=== PATIENT | female | born 1945 | race Caucasian/White ===

== ENCOUNTER 2019-08-17 11:18 | Inpatient (IN) | payer MEDICARE, BC ==
[~2019-08-17] VITALS: Ht 157.5 cm; Wt 54.0 kg
[2019-08-17 13:48] VITALS: BP 110/58
[2019-08-17] MEDS ORDERED: METF-495 PO (14:27)
[2019-08-17] MEDS ORDERED: ZOLP5TAB8 PO (14:27)
[2019-08-17] MEDS ORDERED: EZET10TA15 PO (14:27)
[2019-08-17] MEDS ORDERED: GABA-532 PO (14:27)
[2019-08-17] MEDS ORDERED: NITR0.4T48 SL (14:27)
[2019-08-17] MEDS ORDERED: DESV50TA PO (14:27)
[2019-08-17] MEDS ORDERED: METO25TA6 PO (14:27)
[2019-08-17] MEDS ORDERED: CHOL10002 PO (14:27)
[2019-08-17] MEDS ORDERED: HYDR-4384 PO (14:27)
[2019-08-17] MEDS ORDERED: MULT-1160 PO (14:27)
[2019-08-17] MEDS ORDERED: CALC-20 PO (14:27)
[2019-08-17] MEDS ORDERED: ATOR40TA PO (14:27)
[2019-08-17] MEDS ORDERED: ASPI81TA31 PO (14:27)
[2019-08-17] MEDS ORDERED: INSU100V39 SQ (14:27)
[2019-08-17] MEDS ORDERED: INSULIN REGULAR, HUMAN 300 UNITS/3 ML VIAL SQ PRN (14:30)
[2019-08-17] MEDS ORDERED: DEXTROSE 50% 50 ML DISP.SYRIN IV PRN ×2 (14:30→15:30)
[2019-08-17] MEDS ORDERED: INSULIN REGULAR, HUMAN 300 UNIT/3 ML VIAL SQ PRN (14:30)
--- NOTE | 2019-08-17 14:45 | NUR ---
Patient admitted around 130pm via ambulance with 2 EMT in stable condition. not in distress. DX: Left hip replacement/johnathan arthroplasty. S/P fall history at home. Alert and oriented x4. Cardiac diet, discoloration surrounds the surgical site. Original dressing in place. no drainage. kept dry and clean. no complaint of pain/discomfort during rounds. On accucheck with sliding scale if needed. no signs of hypo/hyperglycemia noted. Weight bearing as tolerated. will continue monitor
[2019-08-17] MEDS ORDERED: NITROGLYCERIN 0.4 MG/TAB BOTTLE SL SCH (15:15)
[2019-08-17 16:16] VITALS: BP 138/51
[2019-08-17] MEDS ORDERED: BLOOD SUGAR DIAGNOSTIC 1 EACH STRIP VI SCH (16:30)
[2019-08-17] MEDS: METOPROLOL TARTRATE 25 MG TABLET PO SCH (16:38)
[2019-08-17] MEDS: BLOOD SUGAR DIAGNOSTIC 1 EACH STRIP VI SCH ×2 (16:39→20:27)
[2019-08-17] MEDS: INSULIN REGULAR, HUMAN 300 UNIT/3 ML VIAL SQ PRN ×2 (16:40→20:36)
[2019-08-17] MEDS: HYDROCODONE/APAP 5-325MG TABLET PO PRN ×2 (17:20→23:18)
[2019-08-17] MEDS: METFORMIN HCL 500 MG TABLET PO SCH (18:03)
--- NOTE | 2019-08-17 19:35 | NUR ---
Awake in bed, very pleasant, cooperative, denies any pain/discomforts at this time. Safety measure and fall precaution maintained. Conmtinue care as planned.
[2019-08-17] MEDS: ATORVASTATIN 40 MG TABLET PO SCH (20:24)
[2019-08-17] MEDS: CALCIUM CARB/VITAMIN D 600-400 MG TABLET PO SCH (20:28)
[2019-08-17] MEDS: SERTRALINE HCL 50 MG TABLET PO SCH (20:28)
[2019-08-17 20:32] VITALS: BP 124/42
--- NOTE | 2019-08-17 23:22 | NUR ---
Medicated for left leg pain, Will monitor.
[2019-08-18 04:54] VITALS: BP 104/39
--- NOTE | 2019-08-18 05:27 | NUR ---
Shift End Report: BP at 0430 105/39, asymptomatic. will endorse to oncoming shift and monitor. All needs attended and met. Slept well. Good skin/elisa care rendered after each bladder incontinence. Kept abduction pillow in placed. Medicated once for pain with relief. No further complaint presented. Continue current rehab plan of care.
[2019-08-18] MEDS: BLOOD SUGAR DIAGNOSTIC 1 EACH STRIP VI SCH ×4 (06:47→20:41)
--- NOTE | 2019-08-18 07:39 | NUR ---
Patient noted resting in bed with eyes closed, no complaints of pain at this time, no signs of distress noted, call light in reach, bed locked and in lowest position, all needs met at this time
[2019-08-18 08:00] VITALS: BP 135/46
[2019-08-18] MEDS: CHOLECALCIFEROL 1,000 UNIT TABLET PO SCH (08:18)
[2019-08-18] MEDS: ASPIRIN 81 MG TAB.CHEW PO SCH (08:18)
[2019-08-18] MEDS: MULTIVIT, IRON, MIN NO. 8, FA TABLET PO SCH (08:18)
[2019-08-18] MEDS: METOPROLOL TARTRATE 25 MG TABLET PO SCH ×2 (08:19→17:00)
[2019-08-18] MEDS: METFORMIN HCL 500 MG TABLET PO SCH ×2 (08:19→17:18)
[2019-08-18] MEDS: EZETIMIBE 10 MG TABLET PO SCH (08:21)
[2019-08-18] MEDS: HYDROCODONE/APAP 5-325MG TABLET PO PRN ×2 (08:23→20:40)
[2019-08-18] MEDS: GABAPENTIN 100 MG CAPSULE PO SCH (08:53)
[2019-08-18] MEDS: CALCIUM CARB/VITAMIN D 600-400 MG TABLET PO SCH ×2 (08:53→20:12)
[2019-08-18] MEDS: ENOXAPARIN SODIUM 40 MG/0.4 ML DISP.SYRIN SQ SCH (08:57)
[2019-08-18] MEDS ORDERED: Medication Not On Formulary EA (Desvenlafaxine Succinate (Pristiq) 50 MG) PO SCH (09:00)
[2019-08-18] MEDS: INSULIN REGULAR, HUMAN 300 UNIT/3 ML VIAL SQ PRN ×3 (11:59→20:43)
[2019-08-18 15:58] VITALS: BP 117/49
--- NOTE | 2019-08-18 19:38 | NUR ---
Awake in room and in bed during initial rounds. Denies any pain/discomforts at this time. Abduction pillow in used/in placed. Safety measures and fall precaution maintained. Continue care as planned.
--- NOTE | 2019-08-18 20:00 | NUR ---
Temp 99.7. Cooling measures initiated, Encouraged and offered increased oral fluid intake as tolerated. Provided light linens. Will monitor.
[2019-08-18] MEDS: ATORVASTATIN 40 MG TABLET PO SCH (20:12)
[2019-08-18] MEDS: SERTRALINE HCL 50 MG TABLET PO SCH (20:12)
[2019-08-18 20:32] VITALS: BP 129/48
--- NOTE | 2019-08-18 20:45 | NUR ---
Complaint of left hip pain at this timein scale of 6/10, [place] 1 tab oral given as needed and ordered. Will monitor therapeutic effect.
[2019-08-19 04:55] VITALS: BP 140/60
[2019-08-19] MEDS: BLOOD SUGAR DIAGNOSTIC 1 EACH STRIP VI SCH ×4 (06:20→19:45)
--- NOTE | 2019-08-19 07:06 | NUR ---
Shift End Report: Slept good. VS stable. Medicated once for pain with relief. No further complaint presented. Temp down to 98.6 this time. All needs attended and met. No significant event reported all night. Continue current rehab of care.
--- NOTE | 2019-08-19 07:51 | NUR ---
Patient noted noted resting in bed with eyes closed, no facial cues of pain of pain, no signs of distress noted, call light in reach, bed locked and in lowest position, all needs met
[2019-08-19 08:00] VITALS: BP 121/46
[2019-08-19] MEDS: HYDROCODONE/APAP 5-325MG TABLET PO PRN ×2 (08:37→19:46)
[2019-08-19] MEDS: MULTIVIT, IRON, MIN NO. 8, FA TABLET PO SCH (08:37)
[2019-08-19] MEDS: EZETIMIBE 10 MG TABLET PO SCH (08:37)
[2019-08-19] MEDS: CALCIUM CARB/VITAMIN D 600-400 MG TABLET PO SCH ×2 (08:37→20:14)
[2019-08-19] MEDS: CHOLECALCIFEROL 1,000 UNIT TABLET PO SCH (08:37)
[2019-08-19] MEDS: GABAPENTIN 100 MG CAPSULE PO SCH (08:37)
[2019-08-19] MEDS: METFORMIN HCL 500 MG TABLET PO SCH ×2 (08:38→17:14)
[2019-08-19] MEDS: ASPIRIN 81 MG TAB.CHEW PO SCH (08:38)
[2019-08-19] MEDS: METOPROLOL TARTRATE 25 MG TABLET PO SCH ×2 (08:38→16:57)
[2019-08-19] MEDS: ENOXAPARIN SODIUM 40 MG/0.4 ML DISP.SYRIN SQ SCH (08:48)
[2019-08-19 16:54] VITALS: BP 115/46
[2019-08-19] MEDS: INSULIN REGULAR, HUMAN 300 UNIT/3 ML VIAL SQ PRN ×2 (16:56→19:44)
[2019-08-19 19:21] VITALS: BP 117/46
--- NOTE | 2019-08-19 19:30 | NUR ---
Awake during initial rounds, watching TV.Presented tolerable pain on left hip, not needing any pain medication at this time yet. Will monitor. Safety measure and afll precaution maintained. Continue care as planned.
--- NOTE | 2019-08-19 19:46 | NUR ---
Medicated with [place] as ordered and needed for complaint of left hip pain in scale of 6/10, Will monitor.
[2019-08-19] MEDS: SERTRALINE HCL 50 MG TABLET PO SCH (20:14)
[2019-08-19] MEDS: ATORVASTATIN 40 MG TABLET PO SCH (20:14)
[2019-08-20] MEDS: HYDROCODONE/APAP 5-325MG TABLET PO PRN ×3 (04:53→18:33)
[2019-08-20 04:59] VITALS: BP 134/53
--- NOTE | 2019-08-20 05:11 | NUR ---
Shift End Report: VS stable. Medicated twice with [place] as ordered and needed for left hip pain with relief. No further compliant presented. MOM was also given, no BM since admission. Will monitor and endorse to AM shift nurse.No significant event reported all night. All needs attended and met. NO significant event reported all night. Continue current rehab plan of care.
[2019-08-20] MEDS: MAGNESIUM HYDROXIDE 30 ML LIQUID UDC PO PRN (06:04)
[2019-08-20] MEDS: BLOOD SUGAR DIAGNOSTIC 1 EACH STRIP VI SCH ×4 (06:05→20:42)
--- NOTE | 2019-08-20 07:31 | NUR ---
Patient noted sitting up in bed drinking water, no complaints of pain, no signs of distress noted, call light in reach, bed locked and in lowest position, all needs met
[2019-08-20 08:00] VITALS: BP 133/53
[2019-08-20] MEDS: ENOXAPARIN SODIUM 40 MG/0.4 ML DISP.SYRIN SQ SCH (08:40)
[2019-08-20] MEDS: MULTIVIT, IRON, MIN NO. 8, FA TABLET PO SCH (08:42)
[2019-08-20] MEDS: METFORMIN HCL 500 MG TABLET PO SCH ×2 (08:43→17:14)
[2019-08-20] MEDS: GABAPENTIN 100 MG CAPSULE PO SCH (08:43)
[2019-08-20] MEDS: ASPIRIN 81 MG TAB.CHEW PO SCH (08:43)
[2019-08-20] MEDS: CHOLECALCIFEROL 1,000 UNIT TABLET PO SCH (08:43)
[2019-08-20] MEDS: DOCUSATE SODIUM 100 MG CAPSULE PO SCH ×2 (08:43→20:40)
[2019-08-20] MEDS: EZETIMIBE 10 MG TABLET PO SCH (08:43)
[2019-08-20] MEDS: CALCIUM CARB/VITAMIN D 600-400 MG TABLET PO SCH ×2 (08:43→20:39)
[2019-08-20] MEDS: METOPROLOL TARTRATE 25 MG TABLET PO SCH ×2 (08:44→17:00)
--- NOTE | 2019-08-20 15:18 | NUR ---
INDIVIDUALIZED PLAN OF CARE
[2019-08-20 16:54] VITALS: BP 128/49
--- NOTE | 2019-08-20 19:30 | NUR ---
Awake during initial rounds. Denies any pain/discomforts at this time, but expressed feeling tired from the therapy. Fafety measure and afll precaution maintained. Continue care as planned.
[2019-08-20 20:00] VITALS: BP 136/51
[2019-08-20] MEDS: ATORVASTATIN 40 MG TABLET PO SCH (20:40)
[2019-08-20] MEDS: SERTRALINE HCL 50 MG TABLET PO SCH (20:40)
[2019-08-20] MEDS: INSULIN REGULAR, HUMAN 300 UNIT/3 ML VIAL SQ PRN (20:44)
[2019-08-21] MEDS: HYDROCODONE/APAP 5-325MG TABLET PO PRN ×3 (02:29→17:18)
[2019-08-21 04:00] VITALS: BP 126/52
--- NOTE | 2019-08-21 06:05 | NUR ---
Shift End Report: vS stable. Medicated once for pain with relief. No further complaint presented. All needs attended and met. No significant event reported all night. Continue current rehab plan of care.
[2019-08-21] MEDS: BLOOD SUGAR DIAGNOSTIC 1 EACH STRIP VI SCH ×4 (06:28→20:49)
[2019-08-21] MEDS: CHOLECALCIFEROL 1,000 UNIT TABLET PO SCH (08:50)
[2019-08-21] MEDS: ASPIRIN 81 MG TAB.CHEW PO SCH (08:50)
[2019-08-21] MEDS: MULTIVIT, IRON, MIN NO. 8, FA TABLET PO SCH (08:50)
[2019-08-21] MEDS: DOCUSATE SODIUM 100 MG CAPSULE PO SCH ×2 (08:50→20:43)
[2019-08-21] MEDS: METFORMIN HCL 500 MG TABLET PO SCH ×2 (08:50→17:18)
[2019-08-21] MEDS: EZETIMIBE 10 MG TABLET PO SCH (08:51)
[2019-08-21] MEDS: GABAPENTIN 100 MG CAPSULE PO SCH (08:52)
[2019-08-21] MEDS: CALCIUM CARB/VITAMIN D 600-400 MG TABLET PO SCH ×2 (08:52→20:43)
[2019-08-21] MEDS: ENOXAPARIN SODIUM 40 MG/0.4 ML DISP.SYRIN SQ SCH (08:59)
[2019-08-21] MEDS: METOPROLOL TARTRATE 25 MG TABLET PO SCH ×2 (09:00→17:00)
[2019-08-21 09:12] VITALS: BP 135/52
--- NOTE | 2019-08-21 09:16 | NUR ---
PATIENT STATED FEELING DIZZY, BLOOD PRESSURE NOTED DECREASED BLOOD PRESSURE, HOWEVER PATIENT IS ALERT, ORIENTED X4, NO SOB, RESP EVEN NONLABORED, SATURATING AT 96%, AT ROOM AIR, REPORTED TO DR ALVAREZ, WITH ORDER TO GIVE 1000ML NS BOLUS, LABS.
[2019-08-21] MEDS ORDERED: IV NS 1000 ML 1,000 ML IV ONE (10:15)
[2019-08-21 10:38] LABS: EOSINOPHILS # (AUTO) 0.2 K/uL (0.0-0.7); MONOCYTES # (AUTO) 0.8 K/uL (2.0-10.0); NEUTROPHILS # (AUTO) 4.6 K/uL (1.8-8.9)
[2019-08-21 11:01] LABS: EOSINOPHILS % (AUTO) 2.6 % (0.0-7.0); MEAN CORPUSCULAR HGB CONC 33 g/dL (32.3-35.6); MONOCYTES % (AUTO) 11.3 % (0.0-11.0); WHITE BLOOD COUNT (AUTO) 6.8 K/uL (3.8-11.8)
[2019-08-21 11:03] LABS: BASOPHILS % (AUTO) 0.2 % (0.0-2.0); LYMPHOCYTES # (AUTO) 1.3 K/uL (20.0-40.0); LYMPHOCYTES % (AUTO) 18.4 % (20.5-51.5); MEAN CORPUSCULAR HEMOGLOBIN 28.2 uug (24.7-32.8); NEUTROPHILS % (AUTO) 67.5 % (38.5-71.5); PLATELET COUNT (AUTO) 288 K/uL (179-408); RED BLOOD CELL COUNT(AUTO) 2.61 MIL/uL (3.63-4.92)
[2019-08-21 11:05] LABS: HEMOGLOBIN 7.4 g/dL (10.9-14.3)
[2019-08-21 11:06] LABS: HEMATOCRIT 22.2 % (31.2-41.9)
--- NOTE | 2019-08-21 11:13 | NUR ---
PAGED DR ALVAREZ, FOR LOW HEMOGLOBIN, SPOKE TO SRIDEVI FROM THE OFFICE.
[2019-08-21 11:49] LABS: POTASSIUM 4.5 mmol/L (3.5-5.1)
[2019-08-21 11:55] LABS: BILIRUBIN,TOTAL 0.6 mg/dL (0.2-1.0); TOTAL PROTEIN, SERUM 6.3 g/dL (6.4-8.2)
[2019-08-21 12:38] LABS: IRON, SERUM 53 ug/dL (50-175)
[2019-08-21 16:03] VITALS: BP 131/53
[2019-08-21] MEDS: PANTOPRAZOLE SODIUM 40 MG TABLET.DR PO SCH (17:19)
--- NOTE | 2019-08-21 17:58 | NUR ---
PATIENT IS ALERT, ORIENTED X4, VERBALLY RESPONSIVE, NO SOB, RESP EVEN NONLABORED,SKIN WARM AND DRY TO TOUCH, HOWEVER SKIN PALE IN COLOR, NO DISTRESS NOTED, PATIENT WAS ABLE TO AMBULATE WITH ASSIST, CONTINUE TO MONITOR
--- NOTE | 2019-08-21 19:30 | NUR ---
Awake, in bed, not in distress. denies any pain/discomforts at this time. Safety measure and fall precaution maintained. Continue care as planned.
[2019-08-21 20:26] VITALS: BP 119/50
[2019-08-21] MEDS: ATORVASTATIN 40 MG TABLET PO SCH (20:43)
[2019-08-21] MEDS: SERTRALINE HCL 50 MG TABLET PO SCH (20:43)
[2019-08-22] MEDS: HYDROCODONE/APAP 5-325MG TABLET PO PRN ×3 (02:04→20:33)
[2019-08-22 04:00] VITALS: BP 124/47
[2019-08-22] MEDS: PANTOPRAZOLE SODIUM 40 MG TABLET.DR PO SCH ×2 (06:02→16:35)
[2019-08-22] MEDS: BLOOD SUGAR DIAGNOSTIC 1 EACH STRIP VI SCH ×4 (06:08→20:39)
--- NOTE | 2019-08-22 06:26 | NUR ---
Shift End report: Vs stable. Medicated once for pain as ordered and needed with relief. No further complaint presented. No s/s of hypo.hyperglycemia. All needs attended and met. No significant event reported all night. Continue current rehab plan of care.
--- NOTE | 2019-08-22 07:36 | NUR ---
PATIENT IS IN BED, NO DISTRESS NOTED, NO SOB,R ROJAS EVEN NONLABORED. ALERT, ORIENTED X4, VERBALLY RESPONSIVE.
[2019-08-22 07:38] LABS: MAGNESIUM 2.2 mg/dL (1.8-2.4); PHOSPHOROUS 3.1 mg/dL (2.5-4.9); POTASSIUM 4.6 mmol/L (3.5-5.1)
[2019-08-22 07:45] VITALS: BP 142/55
[2019-08-22 07:48] LABS: BASOPHILS % (AUTO) 0.3 % (0.0-2.0); EOSINOPHILS # (AUTO) 0.2 K/uL (0.0-0.7); EOSINOPHILS % (AUTO) 3.1 % (0.0-7.0); HEMATOCRIT 22.5 % (31.2-41.9); HEMOGLOBIN 7.5 g/dL (10.9-14.3); LYMPHOCYTES # (AUTO) 1.8 K/uL (20.0-40.0); LYMPHOCYTES % (AUTO) 22.6 % (20.5-51.5); MEAN CORPUSCULAR HEMOGLOBIN 27.9 uug (24.7-32.8); MEAN CORPUSCULAR HGB CONC 33 g/dL (32.3-35.6); MEAN CORPUSCULAR VOLUME 83.5 fL (75.5-95.3); MONOCYTES # (AUTO) 0.8 K/uL (2.0-10.0); PLATELET COUNT (AUTO) 327 K/uL (179-408); WHITE BLOOD COUNT (AUTO) 7.8 K/uL (3.8-11.8)
[2019-08-22 08:00] VITALS: BP 102/40
[2019-08-22] MEDS: CHOLECALCIFEROL 1,000 UNIT TABLET PO SCH (08:06)
[2019-08-22] MEDS: DOCUSATE SODIUM 100 MG CAPSULE PO SCH ×2 (08:06→20:33)
[2019-08-22] MEDS: GABAPENTIN 100 MG CAPSULE PO SCH (08:06)
[2019-08-22] MEDS: CALCIUM CARB/VITAMIN D 600-400 MG TABLET PO SCH ×2 (08:06→20:33)
[2019-08-22] MEDS: EZETIMIBE 10 MG TABLET PO SCH (08:06)
[2019-08-22] MEDS: ASPIRIN 81 MG TAB.CHEW PO SCH (08:07)
[2019-08-22] MEDS: MAGNESIUM HYDROXIDE 30 ML LIQUID UDC PO PRN (08:12)
[2019-08-22 08:30] VITALS: BP 114/47
[2019-08-22] MEDS: METFORMIN HCL 500 MG TABLET PO SCH ×2 (08:58→17:04)
[2019-08-22] MEDS: MULTIVIT, IRON, MIN NO. 8, FA TABLET PO SCH (08:58)
[2019-08-22] MEDS: METOPROLOL TARTRATE 25 MG TABLET PO SCH ×2 (09:00→16:27)
[2019-08-22] MEDS: INSULIN REGULAR, HUMAN 300 UNIT/3 ML VIAL SQ PRN ×2 (12:02→20:42)
[2019-08-22 12:14] LABS: *OCCULT BLOOD STOOL NEGATIVE (NEGATIVE)
--- NOTE | 2019-08-22 12:47 | NUR ---
PATIENT REFUSES HIS SCD PUMPS STRONGLY, RISKS AND BENEFITS EXPLAINED, PATIENT IS AMBULATORY. Addendum: 08/22/19 at 1249 by SARAH GARCIA RN, RN DISREGARD ABOVE CHARTING, WRONG DOCUMENTATION
--- NOTE | 2019-08-22 13:30 | NUR ---
PATIENT IS ALERT, ORIENTED X4, VERBALLY RESPONSIVE, NOTED WITH SOB UPON EXERTION, O2 SAT DROPPED WHILE TRIED TO AMBULATE TO BATHROOM TO 88%, O2 2 LITER VIA NASAL CANULA PROVIDED,SATURATION CAME UP TO 95%, Addendum: 08/22/19 at 1613 by SARAH GARCIA RN, RN O2 1 LITER PROVIDED VIA NASAL CANULA, EFFECTIVE, DR ALVAREZ MADE AWARE. BOLUS IV GIVEN, CONTINUE TO MONITOR
[2019-08-22] MEDS ORDERED: IV NS 1000 ML 1,000 ML IV ONE (13:45)
--- NOTE | 2019-08-22 14:00 | NUR ---
Doctor Gene was notified of patients status and ordered NS 1L Blous, NS 75cc/hr , H +H tomorrow and pressure stockings
[2019-08-22] MEDS: IV NS 1000 ML 1,000 ML IV PRN (15:53)
--- NOTE | 2019-08-22 16:13 | NUR ---
PATIENT IS IN BED, RECEIVING IV FLUIDS ORDERED, STABLE CONDITION, CONTINUE TO MONITOR, WILL ENDORSE ACCORDINGLY
--- NOTE | 2019-08-22 16:26 | NUR ---
PATIENT REFUSED INSULIN STATED SHE DOES NOT WANT INSULIN IF THE BLOOD SUGAR IS ONLY 144' PATIENT RIGHT TO REFUSE RESPECTED
--- NOTE | 2019-08-22 19:30 | NUR ---
Received patient in bed, awake, pale looking, so happy to see me, relating what happened during the day, but so far denied any pain/discomforts at this time. Now on continuous O2 at 2L via NC saturating % at this time, HOB elevated. IVF infusing on LW at 75cc/hour. NO pain/s/s of infiltration, redness/swelling on site. safety measure and fall precaution maintained. Continue care as planned.
[2019-08-22] MEDS ORDERED: EMPA10TA PO (19:40)
[2019-08-22] MEDS: ATORVASTATIN 40 MG TABLET PO SCH (20:33)
[2019-08-22] MEDS: SERTRALINE HCL 50 MG TABLET PO SCH (20:33)
[2019-08-22 21:46] VITALS: BP 155/62
[2019-08-23] MEDS: IV NS 1000 ML 1,000 ML IV PRN ×2 (03:45→17:17)
--- NOTE | 2019-08-23 05:43 | NUR ---
Shift End Report: VS stable. Slept good. No complaint presented all night. IVF infusing continuously on left wrist without s/s of infiltration/redness/swelling. Denies any dizziness. No s/s of hypo/hyperglycemia. All needs attended and met. No significant event reported. Continue current rehab plan of care.
[2019-08-23] MEDS: PANTOPRAZOLE SODIUM 40 MG TABLET.DR PO SCH ×2 (06:04→17:14)
[2019-08-23] MEDS: BLOOD SUGAR DIAGNOSTIC 1 EACH STRIP VI SCH ×4 (06:18→20:17)
[2019-08-23 07:10] LABS: HEMATOCRIT 22.2 % (31.2-41.9); HEMOGLOBIN 7.3 g/dL (10.9-14.3)
[2019-08-23 07:49] VITALS: BP 152/56
[2019-08-23] MEDS: CHOLECALCIFEROL 1,000 UNIT TABLET PO SCH (08:06)
[2019-08-23] MEDS: ASPIRIN 81 MG TAB.CHEW PO SCH (08:06)
[2019-08-23] MEDS: MULTIVIT, IRON, MIN NO. 8, FA TABLET PO SCH (08:06)
[2019-08-23] MEDS: METOPROLOL TARTRATE 25 MG TABLET PO SCH ×2 (08:07→17:14)
[2019-08-23] MEDS: EZETIMIBE 10 MG TABLET PO SCH (08:08)
[2019-08-23] MEDS: DOCUSATE SODIUM 100 MG CAPSULE PO SCH ×2 (08:08→20:15)
[2019-08-23] MEDS: GABAPENTIN 100 MG CAPSULE PO SCH (08:08)
[2019-08-23] MEDS: METFORMIN HCL 500 MG TABLET PO SCH ×2 (08:08→17:14)
[2019-08-23] MEDS: CALCIUM CARB/VITAMIN D 600-400 MG TABLET PO SCH ×2 (08:08→20:15)
[2019-08-23] MEDS: INSULIN REGULAR, HUMAN 300 UNIT/3 ML VIAL SQ PRN ×4 (08:12→20:18)
--- NOTE | 2019-08-23 09:02 | NUR ---
Received pt. in bed, A/OX4, verbally responsive and able to make her needs known. In no acute distress, no SOB, or c/o CP. Pt. currently on 1LPM via NC with SpO2 of 96%. All due AM medications given as ordered and tolerated well. On IV fluid 0.9% NS on 75cc/hr, no s/sx of fluid overload. LW PIV patent and intact. Lt. hip surgical dressing C/D/I. No s/sx of bleeding. No s/sx of hypo/hyperglycemia. All pt. needs attended and met promptly. Safety measures in place. Call light and all frequently used items within pt. reach. Will continue to monitor.
--- NOTE | 2019-08-23 12:50 | NUR ---
Paged Dr. Mills at 11:30 about pt status of H+H trending down 7.[address] Elizabeth on site and came to check on pt and ordered CBC, Iron panel, and BMP lab work at 1200.
[2019-08-23 14:40] VITALS: BP 122/45
--- NOTE | 2019-08-23 18:15 | NUR ---
EOS: No significant change during this shift. Pt. seen by Dr. Mills, aware of hgb 7.3, no new order at this time. All due medications given as ordered. No s/sx of hypo/hyperglycemia. Pt. tolerating IV fluid, no episode of orthostatic hypotension this shift. Tolerated PT/OT tx. Lt. hip dressing remain C/D/I. Pt. weaned of O2, tolerating RA @ 96% SpO2. All pt. needs attended and met promptly. Call light and all frequently used items within pt. reach. Will endorsed to oncoming shift.
[2019-08-23] MEDS: SERTRALINE HCL 50 MG TABLET PO SCH (20:15)
[2019-08-23] MEDS: ATORVASTATIN 40 MG TABLET PO SCH (20:15)
[2019-08-23 20:23] VITALS: BP 134/52
--- NOTE | 2019-08-23 20:39 | NUR ---
Received pt resting in bed. AAO x4. No acute distress noted. 97% on room air. Denies pain/ discomfort. Due meds given as ordered. Accucheck of 117, no insulin coverage as per sliding scale. On IV fluids NS @ 75 cc/hr, tolerating well. No s/s of orthostatic hypotension noted. Safety measures maintained. Call light and personal items within reach. Will continue to monitor.
[2019-08-23] MEDS: HYDROCODONE/APAP 5-325MG TABLET PO PRN (20:58)
[2019-08-24 05:10] VITALS: BP 135/53
[2019-08-24] MEDS: PANTOPRAZOLE SODIUM 40 MG TABLET.DR PO SCH ×2 (06:18→17:29)
[2019-08-24] MEDS: IV NS 1000 ML 1,000 ML IV PRN (06:27)
[2019-08-24] MEDS: BLOOD SUGAR DIAGNOSTIC 1 EACH STRIP VI SCH ×4 (06:31→20:10)
[2019-08-24 06:54] LABS: BASOPHILS % (AUTO) 0.2 % (0.0-2.0); EOSINOPHILS # (AUTO) 0.3 K/uL (0.0-0.7); MEAN CORPUSCULAR HEMOGLOBIN 28.5 uug (24.7-32.8); MONOCYTES # (AUTO) 0.6 K/uL (2.0-10.0); MONOCYTES % (AUTO) 7.3 % (0.0-11.0); RED BLOOD CELL COUNT(AUTO) 2.57 MIL/uL (3.63-4.92); WHITE BLOOD COUNT (AUTO) 8.5 K/uL (3.8-11.8)
[2019-08-24 06:56] LABS: EOSINOPHILS % (AUTO) 3.3 % (0.0-7.0); HEMATOCRIT 21.9 % (31.2-41.9); LYMPHOCYTES # (AUTO) 1.7 K/uL (20.0-40.0); LYMPHOCYTES % (AUTO) 20.1 % (20.5-51.5); MEAN CORPUSCULAR HGB CONC 33 g/dL (32.3-35.6); MEAN CORPUSCULAR VOLUME 85.3 fL (75.5-95.3); NEUTROPHILS # (AUTO) 5.9 K/uL (1.8-8.9); NEUTROPHILS % (AUTO) 69.1 % (38.5-71.5); PLATELET COUNT (AUTO) 408 K/uL (179-408)
[2019-08-24 07:00] LABS: POTASSIUM 5.1 mmol/L (3.5-5.1)
[2019-08-24 07:03] LABS: HEMOGLOBIN 7.3 g/dL (10.9-14.3)
[2019-08-24] MEDS: HYDROCODONE/APAP 5-325MG TABLET PO PRN ×2 (08:17→23:10)
[2019-08-24] MEDS: DOCUSATE SODIUM 100 MG CAPSULE PO SCH ×2 (08:18→20:08)
[2019-08-24] MEDS: ASPIRIN 81 MG TAB.CHEW PO SCH (08:18)
[2019-08-24] MEDS: CHOLECALCIFEROL 1,000 UNIT TABLET PO SCH (08:18)
[2019-08-24] MEDS: CALCIUM CARB/VITAMIN D 600-400 MG TABLET PO SCH ×2 (08:18→20:08)
[2019-08-24] MEDS: GABAPENTIN 100 MG CAPSULE PO SCH (08:18)
[2019-08-24 08:22] VITALS: BP 156/52
[2019-08-24] MEDS: MULTIVIT, IRON, MIN NO. 8, FA TABLET PO SCH (08:22)
[2019-08-24] MEDS: METFORMIN HCL 500 MG TABLET PO SCH ×2 (08:22→17:29)
[2019-08-24] MEDS: METOPROLOL TARTRATE 25 MG TABLET PO SCH ×2 (09:00→17:00)
[2019-08-24] MEDS: EZETIMIBE 10 MG TABLET PO SCH (09:17)
--- NOTE | 2019-08-24 11:03 | NUR ---
INTERDISCIPLINARY TEAM CONFERENCE
--- NOTE | 2019-08-24 11:47 | NUR ---
PATIENT REFUSED INSULIN, RISKS AND BENEFITS EXPLAINED
--- NOTE | 2019-08-24 15:31 | NUR ---
PATIENT NOTED WITH POSITIVE FOR ORTHOSTATIC BLOOD PRESSURES, DR REDD MADE AWARE. PATIENT TOLERATED SHOWER, FELT DIZZY UPON STANDING, IV FLUIDS ARE RUNNING AT 75CC/HR, PATIENT IS ALERT, ORIENTED X4, VERBALLY RESPONSIVE, NO SOB, RESP EVEN NONLABORED, CONTINUE TO MONITOR
[2019-08-24 16:06] VITALS: BP 129/58
--- NOTE | 2019-08-24 17:44 | NUR ---
PATIENT AMBULATED WITH PT, AND TO THE BATHROOM, WITH FWW, WITH SUPERVISION, TOLERATED WELL, PATIENT DENIED FEELING DIZZY, SITTING IN CHAIR, TOLERATED DINNER WELL, IV SITE IS INTACT AND PATENT, NO SIGNS AND SYMPTOMS OF INFILTRATION NOTED, NO DISTRESS NOTED. EDUCATED PATIENT ON SAFETY PRECAUTIONS, SIT FEW MINUTES AFTER GETTING UP FORM LAYING POSITION, PATIENT VERBALIZED UNDERSTANDING OF IT.
[2019-08-24 19:40] VITALS: BP 141/51
[2019-08-24] MEDS: ATORVASTATIN 40 MG TABLET PO SCH (20:08)
[2019-08-24] MEDS: SERTRALINE HCL 50 MG TABLET PO SCH (20:09)
[2019-08-24] MEDS: INSULIN REGULAR, HUMAN 300 UNIT/3 ML VIAL SQ PRN (20:11)
--- NOTE | 2019-08-24 21:16 | NUR ---
Received pt resting in bed. AAO x4. No acute distress noted. 98% on room air. Denies pain/ discomfort. Due meds given as ordered. Accucheck of 119, no insulin coverage as per sliding scale. On IV fluids NS @ 75 cc/hr, tolerating well. No s/s of orthostatic hypotension noted. Assisted using bedpan. DVT pumps on. Safety measures maintained. Call light and personal items within reach. Will continue to monitor.
[2019-08-25 05:35] VITALS: BP 129/39
[2019-08-25] MEDS: PANTOPRAZOLE SODIUM 40 MG TABLET.DR PO SCH ×2 (06:17→17:15)
[2019-08-25] MEDS: IV NS 1000 ML 1,000 ML IV PRN (06:17)
[2019-08-25] MEDS: BLOOD SUGAR DIAGNOSTIC 1 EACH STRIP VI SCH ×4 (06:30→21:10)
[2019-08-25 06:34] LABS: BASOPHILS # (AUTO) 0.1 K/uL (0.0-8.0); BASOPHILS % (AUTO) 1.1 % (0.0-2.0); EOSINOPHILS # (AUTO) 0.3 K/uL (0.0-0.7); LYMPHOCYTES # (AUTO) 1.9 K/uL (20.0-40.0); MONOCYTES # (AUTO) 0.6 K/uL (2.0-10.0)
[2019-08-25 06:36] LABS: EOSINOPHILS % (AUTO) 3.6 % (0.0-7.0); HEMOGLOBIN 7.1 g/dL (10.9-14.3); MEAN CORPUSCULAR HEMOGLOBIN 28.7 uug (24.7-32.8); MEAN CORPUSCULAR HGB CONC 34 g/dL (32.3-35.6); MEAN CORPUSCULAR VOLUME 85.3 fL (75.5-95.3); MONOCYTES % (AUTO) 7.2 % (0.0-11.0); NEUTROPHILS # (AUTO) 5.2 K/uL (1.8-8.9); NEUTROPHILS % (AUTO) 65.1 % (38.5-71.5); PLATELET COUNT (AUTO) 438 K/uL (179-408); RED BLOOD CELL COUNT(AUTO) 2.46 MIL/uL (3.63-4.92)
[2019-08-25 07:05] LABS: CREATININE 1.2 mg/dL (0.6-1.3); PHOSPHOROUS 3.2 mg/dL (2.5-4.9)
--- NOTE | 2019-08-25 07:28 | NUR ---
patient noted resting in bed with eyes closed, no complaints of pain, no signs of distress noted, call light in reach, bed locked and in lowest position, all needs met at this time, normal saline fluids noted running at this time
[2019-08-25 08:07] VITALS: BP 147/54
[2019-08-25] MEDS: MULTIVIT, IRON, MIN NO. 8, FA TABLET PO SCH (08:32)
[2019-08-25] MEDS: DOCUSATE SODIUM 100 MG CAPSULE PO SCH ×2 (08:32→21:02)
[2019-08-25] MEDS: ASPIRIN 81 MG TAB.CHEW PO SCH (08:33)
[2019-08-25] MEDS: CHOLECALCIFEROL 1,000 UNIT TABLET PO SCH (08:33)
[2019-08-25] MEDS: METFORMIN HCL 500 MG TABLET PO SCH ×2 (08:33→17:15)
[2019-08-25] MEDS: EZETIMIBE 10 MG TABLET PO SCH (08:33)
[2019-08-25] MEDS: CALCIUM CARB/VITAMIN D 600-400 MG TABLET PO SCH ×2 (08:33→21:02)
[2019-08-25] MEDS: GABAPENTIN 100 MG CAPSULE PO SCH (08:33)
[2019-08-25] MEDS: METOPROLOL TARTRATE 25 MG TABLET PO SCH ×2 (08:35→17:00)
[2019-08-25] MEDS: HYDROCODONE/APAP 5-325MG TABLET PO PRN ×2 (08:35→21:47)
--- NOTE | 2019-08-25 10:02 | NUR ---
MD SLADE MADE AWARE OF PATIENTS HGB OF 7.1, NO NEW ORDERS
[2019-08-25] MEDS ORDERED: EPOETIN ALFA 20,000 UNIT/ML ML SQ ONE (10:30)
[2019-08-25] MEDS: SOD FERRIC GLUC COMPLX/SUCROSE 125 MG in IV NORMAL SALINE 100 ML IV SCH (13:55)
[2019-08-25 14:23] VITALS: BP 122/49
[2019-08-25 19:45] VITALS: BP 125/41
[2019-08-25] MEDS: SERTRALINE HCL 50 MG TABLET PO SCH (21:02)
[2019-08-25] MEDS: ATORVASTATIN 40 MG TABLET PO SCH (21:02)
[2019-08-25] MEDS: INSULIN REGULAR, HUMAN 300 UNIT/3 ML VIAL SQ PRN (21:03)
--- NOTE | 2019-08-26 04:58 | NUR ---
Received patient in bed. AAO x4. Not in acute distress or SOB. On room air. Farsi speaking but can communicate in Kazakh well. Able to make needs known. Complained of pain on her left hip rated 6/10 on numeric scale. Narco 5-325 mg administered and effective. Pain assessed and reassessed after pain medication. IV line on her right FA intact, no sign of inflammation. Accucheck @ 2100 BS:151 covered by 2 unit insulin based on sliding scale. VS checked. Assisted her to the bathroom as needed. SCD Pump in place. Original dressing on left hip intact. Physical assessment done. All due medication given and well tolerated. All needs attended promptly. Skin care rendered. Fall prevention observed. Safety measures maintained. Bed in low and lock position, side rails up x2 for safety. Call light and frequently used items within reach. Continue to monitor and will endorse to oncoming nurse accordingly.
[2019-08-26] MEDS: PANTOPRAZOLE SODIUM 40 MG TABLET.DR PO SCH ×2 (06:16→17:13)
[2019-08-26] MEDS: BLOOD SUGAR DIAGNOSTIC 1 EACH STRIP VI SCH ×4 (06:37→20:57)
[2019-08-26] MEDS: HYDROCODONE/APAP 5-325MG TABLET PO PRN ×2 (07:01→23:34)
[2019-08-26 07:08] VITALS: BP 113/35
--- NOTE | 2019-08-26 07:25 | NUR ---
patient noted resting in bed with eyes closed, no complaints of pain at this time, no signs of distress, call light in reach, bed locked and in lowest position, all needs met
[2019-08-26 08:00] VITALS: BP 134/48
[2019-08-26] MEDS: CHOLECALCIFEROL 1,000 UNIT TABLET PO SCH (08:27)
[2019-08-26] MEDS: MULTIVIT, IRON, MIN NO. 8, FA TABLET PO SCH (08:27)
[2019-08-26] MEDS: DOCUSATE SODIUM 100 MG CAPSULE PO SCH ×2 (08:27→20:57)
[2019-08-26] MEDS: CALCIUM CARB/VITAMIN D 600-400 MG TABLET PO SCH ×2 (08:28→20:57)
[2019-08-26] MEDS: EZETIMIBE 10 MG TABLET PO SCH (08:28)
[2019-08-26] MEDS: ASPIRIN 81 MG TAB.CHEW PO SCH (08:28)
[2019-08-26] MEDS: GABAPENTIN 100 MG CAPSULE PO SCH (08:28)
[2019-08-26] MEDS: METFORMIN HCL 500 MG TABLET PO SCH ×2 (08:28→17:13)
[2019-08-26] MEDS: METOPROLOL TARTRATE 25 MG TABLET PO SCH ×2 (08:29→17:00)
[2019-08-26] MEDS: SOD FERRIC GLUC COMPLX/SUCROSE 125 MG in IV NORMAL SALINE 100 ML IV SCH (14:54)
[2019-08-26 16:00] VITALS: BP 128/36
--- NOTE | 2019-08-26 19:30 | NUR ---
Awake, in bed, playing her hand held game. No s/s of respiratory distress, Denied any pain/discomforts at this time. Left hip dressing dry and intact. Left wrist HL intact and patent, no redness/swelling noted on site. DVT pump in use. Patient wearing Soren hose stocking. Safety measure and fall precaution maintained. Continue care as planned.
[2019-08-26 20:00] VITALS: BP 137/47
[2019-08-26] MEDS: ATORVASTATIN 40 MG TABLET PO SCH (20:57)
[2019-08-26] MEDS: SERTRALINE HCL 50 MG TABLET PO SCH (20:58)
[2019-08-27] MEDS: PANTOPRAZOLE SODIUM 40 MG TABLET.DR PO SCH ×2 (06:32→17:15)
[2019-08-27] MEDS: BLOOD SUGAR DIAGNOSTIC 1 EACH STRIP VI SCH ×4 (06:38→20:47)
[2019-08-27 07:01] LABS: CREATININE 1.3 mg/dL (0.6-1.3); MAGNESIUM 1.8 mg/dL (1.8-2.4); PHOSPHOROUS 3.7 mg/dL (2.5-4.9); POTASSIUM 4.8 mmol/L (3.5-5.1)
[2019-08-27 07:04] LABS: BASOPHILS % (AUTO) 0.2 % (0.0-2.0); EOSINOPHILS # (AUTO) 0.3 K/uL (0.0-0.7); EOSINOPHILS % (AUTO) 2.7 % (0.0-7.0); LYMPHOCYTES # (AUTO) 2.6 K/uL (20.0-40.0); LYMPHOCYTES % (AUTO) 23.9 % (20.5-51.5); MEAN CORPUSCULAR HGB CONC 33 g/dL (32.3-35.6); MONOCYTES # (AUTO) 0.7 K/uL (2.0-10.0); MONOCYTES % (AUTO) 6.4 % (0.0-11.0); NEUTROPHILS # (AUTO) 7.3 K/uL (1.8-8.9); NEUTROPHILS % (AUTO) 66.8 % (38.5-71.5); RED BLOOD CELL COUNT(AUTO) 2.74 MIL/uL (3.63-4.92)
[2019-08-27 07:05] VITALS: BP 130/40
[2019-08-27 07:09] LABS: HEMATOCRIT 23.8 % (31.2-41.9); HEMOGLOBIN 7.9 g/dL (10.9-14.3); PLATELET COUNT (AUTO) 626 K/uL (179-408); WHITE BLOOD COUNT (AUTO) 10.9 K/uL (3.8-11.8)
--- NOTE | 2019-08-27 07:10 | NUR ---
Shift End Report: Vs stable. Medicated once for pain with relief. No further complaint presented after. Slept in between care. Assisted to the bathroom with FWW. No fall/injury reported. No s/s of hypo/hyperglycemia. HL intact and patent on LW. All needs attended and met. No significant event reported. Continue current rehab plan of care.
[2019-08-27 08:50] VITALS: BP 135/49
[2019-08-27] MEDS: METOPROLOL TARTRATE 25 MG TABLET PO SCH ×2 (09:00→17:00)
[2019-08-27] MEDS: EZETIMIBE 10 MG TABLET PO SCH (09:07)
[2019-08-27] MEDS: GABAPENTIN 100 MG CAPSULE PO SCH (09:07)
[2019-08-27] MEDS: ASPIRIN 81 MG TAB.CHEW PO SCH (09:07)
[2019-08-27] MEDS: CALCIUM CARB/VITAMIN D 600-400 MG TABLET PO SCH ×2 (09:07→20:44)
[2019-08-27] MEDS: DOCUSATE SODIUM 100 MG CAPSULE PO SCH ×2 (09:07→20:44)
[2019-08-27] MEDS: MULTIVIT, IRON, MIN NO. 8, FA TABLET PO SCH (09:07)
[2019-08-27] MEDS: CHOLECALCIFEROL 1,000 UNIT TABLET PO SCH (09:07)
[2019-08-27] MEDS: METFORMIN HCL 500 MG TABLET PO SCH ×2 (09:08→17:15)
[2019-08-27] MEDS: HYDROCODONE/APAP 5-325MG TABLET PO PRN ×2 (09:08→22:23)
[2019-08-27 09:49] LABS: EOSINOPHILS % (MANUAL) 3 % (0-8); LYMPHOCYTES % (MANUAL) 19 % (20-40); METAMYELOCYTES % 1 % (0-1); MONOCYTES % (MANUAL) 2 % (2-10); MYELOCYTES % 1 % (0-0); NEUTROPHILS % (MANUAL) 73 % (42-75)
[2019-08-27 10:12] LABS: REACTIVE LYMPHOCYTES 1 % (0-0)
[2019-08-27] MEDS: SOD FERRIC GLUC COMPLX/SUCROSE 125 MG in IV NORMAL SALINE 100 ML IV SCH (15:00)
[2019-08-27 17:01] VITALS: BP 113/42
[2019-08-27] MEDS: INSULIN REGULAR, HUMAN 300 UNIT/3 ML VIAL SQ PRN ×2 (17:28→20:49)
--- NOTE | 2019-08-27 19:30 | NUR ---
Awake, playing hand held game at this time. Denied any pain/discomforts. HL on LW intact and patent, no s/s of infiltration/redness. Safety measure and fall precaution maintained. Continue care as planned.
[2019-08-27 19:45] VITALS: BP 118/48
[2019-08-27] MEDS: ATORVASTATIN 40 MG TABLET PO SCH (20:44)
[2019-08-27] MEDS: SERTRALINE HCL 50 MG TABLET PO SCH (20:44)
--- NOTE | 2019-08-27 22:23 | NUR ---
Complaining of left hip pain, medicated with [place] as ordered and needed. Will monitor.
[2019-08-28 05:09] VITALS: BP 137/52
[2019-08-28] MEDS: PANTOPRAZOLE SODIUM 40 MG TABLET.DR PO SCH ×2 (06:00→17:59)
[2019-08-28] MEDS: BLOOD SUGAR DIAGNOSTIC 1 EACH STRIP VI SCH ×4 (06:00→21:47)
--- NOTE | 2019-08-28 06:30 | NUR ---
Shift End Report: VS stable. Slept in between care. Very needy this time. Change linen several times due to sweating. Up and about, in and out the bathroom several times with assist. Sponge bath given, tolerated well. Medicated once for pain with relief. No further complaint presented. HL on LW intact and patent. NO significant event reported all night. Continue current rehab plan of care.
[2019-08-28] MEDS: METFORMIN HCL 500 MG TABLET PO SCH ×2 (08:58→18:03)
[2019-08-28] MEDS: METOPROLOL TARTRATE 25 MG TABLET PO SCH ×2 (09:00→15:59)
[2019-08-28] MEDS: MULTIVIT, IRON, MIN NO. 8, FA TABLET PO SCH (09:03)
[2019-08-28] MEDS: ASPIRIN 81 MG TAB.CHEW PO SCH (09:03)
[2019-08-28] MEDS: EZETIMIBE 10 MG TABLET PO SCH (09:03)
[2019-08-28] MEDS: GABAPENTIN 100 MG CAPSULE PO SCH (09:03)
[2019-08-28] MEDS: DOCUSATE SODIUM 100 MG CAPSULE PO SCH ×2 (09:03→20:42)
[2019-08-28] MEDS: CHOLECALCIFEROL 1,000 UNIT TABLET PO SCH (09:03)
[2019-08-28] MEDS: CALCIUM CARB/VITAMIN D 600-400 MG TABLET PO SCH ×2 (09:08→20:42)
--- NOTE | 2019-08-28 09:10 | NUR ---
Patient awake, alert, oriented x 4, not in any form of distress, on room air. Patient denies any pain or discomfort at this time. Assisted patient to the bathroom to void then transferred to the wheelchair for breakfast. Call light and frequently used items placed within reach.
--- NOTE | 2019-08-28 09:30 | NUR ---
Patient picked up by [facility] transportation for follow up appointment with her surgeon Dr. Norris in stable condition. No complain of any discomfort at this time.
--- NOTE | 2019-08-28 11:30 | NUR ---
Patient back from appointment, surgical incision noted with steri-strips on, no signs of infection. Patient remains alert, not complain of any discomfort.
[2019-08-28] MEDS: INSULIN REGULAR, HUMAN 300 UNIT/3 ML VIAL SQ PRN ×2 (11:45→20:59)
[2019-08-28] MEDS: SOD FERRIC GLUC COMPLX/SUCROSE 125 MG in IV NORMAL SALINE 100 ML IV SCH (14:11)
[2019-08-28] MEDS: ACETAMINOPHEN 325 MG TABLET PO PRN (20:42)
[2019-08-28] MEDS: ATORVASTATIN 40 MG TABLET PO SCH (20:42)
[2019-08-28] MEDS: SERTRALINE HCL 50 MG TABLET PO SCH (20:43)
[2019-08-28 22:16] VITALS: BP 127/33
--- NOTE | 2019-08-28 22:33 | NUR ---
Sewer Digger: Received patient in bed no signs of distress, no SOB, denies any pain. Surgical dressing was removed in appointment earlier today with surgical doctor, adriana ramon noted no drainage, no signs of infection. Patient is alert and oriented times four. Patient received her medication on time as tolerable. Accucheck BS: 153 and gave 2 units of insulin. Took patient to the bathroom twice with walker. DVT pumps are on the patient. Patient is resting and all safety measure are in place, low bed, side rails x2 and bed in low position with alarm on. All items needed are within patient reach. Will continue to monitor patient throughout the night.
[2019-08-29 04:00] VITALS: BP 133/46
[2019-08-29] MEDS: PANTOPRAZOLE SODIUM 40 MG TABLET.DR PO SCH ×2 (06:24→17:13)
[2019-08-29] MEDS: BLOOD SUGAR DIAGNOSTIC 1 EACH STRIP VI SCH ×4 (07:00→20:18)
[2019-08-29 07:20] LABS: BASOPHILS % (AUTO) 0.5 % (0.0-2.0); EOSINOPHILS # (AUTO) 0.2 K/uL (0.0-0.7); EOSINOPHILS % (AUTO) 2.6 % (0.0-7.0); HEMATOCRIT 26.4 % (31.2-41.9); HEMOGLOBIN 8.5 g/dL (10.9-14.3); MEAN CORPUSCULAR HEMOGLOBIN 28.9 uug (24.7-32.8); MEAN CORPUSCULAR HGB CONC 32 g/dL (32.3-35.6); MEAN CORPUSCULAR VOLUME 89.3 fL (75.5-95.3); MONOCYTES # (AUTO) 0.8 K/uL (2.0-10.0); MONOCYTES % (AUTO) 8.6 % (0.0-11.0); NEUTROPHILS # (AUTO) 5.7 K/uL (1.8-8.9); NEUTROPHILS % (AUTO) 65.3 % (38.5-71.5); PLATELET COUNT (AUTO) 664 K/uL (179-408); RED BLOOD CELL COUNT(AUTO) 2.95 MIL/uL (3.63-4.92); WHITE BLOOD COUNT (AUTO) 8.8 K/uL (3.8-11.8)
[2019-08-29 07:29] LABS: CREATININE 1.3 mg/dL (0.6-1.3); MAGNESIUM 2.1 mg/dL (1.8-2.4); PHOSPHOROUS 3.4 mg/dL (2.5-4.9); POTASSIUM 4.3 mmol/L (3.5-5.1)
[2019-08-29] MEDS: DOCUSATE SODIUM 100 MG CAPSULE PO SCH ×2 (08:08→20:15)
[2019-08-29] MEDS: ASPIRIN 81 MG TAB.CHEW PO SCH (08:08)
[2019-08-29] MEDS: MULTIVIT, IRON, MIN NO. 8, FA TABLET PO SCH (08:09)
[2019-08-29] MEDS: METFORMIN HCL 500 MG TABLET PO SCH ×2 (08:09→17:13)
[2019-08-29] MEDS: GABAPENTIN 100 MG CAPSULE PO SCH (08:09)
[2019-08-29] MEDS: CALCIUM CARB/VITAMIN D 600-400 MG TABLET PO SCH ×2 (08:09→20:16)
[2019-08-29] MEDS: CHOLECALCIFEROL 1,000 UNIT TABLET PO SCH (08:09)
[2019-08-29] MEDS: EZETIMIBE 10 MG TABLET PO SCH (08:10)
[2019-08-29 09:00] VITALS: BP 108/50
[2019-08-29] MEDS: METOPROLOL TARTRATE 25 MG TABLET PO SCH ×2 (09:00→17:00)
[2019-08-29] MEDS: SOD FERRIC GLUC COMPLX/SUCROSE 125 MG in IV NORMAL SALINE 100 ML IV SCH (14:17)
--- NOTE | 2019-08-29 16:03 | NUR ---
PATIENT IS ALERT, ORIENTED X4, VERBALLY RESPONSIVE, NO SOB, RESP EVEN NONLABORED, SKIN WARM AND DRY TO TOUCH, NO DISTRESS NOTED, PATIENT TOLERATED PT, OT SERVICES WELL, AMBUALTED WITH PT. DENIED BEING DIZZY. NEEDS ATTENDED TIMELY.
[2019-08-29 16:31] VITALS: BP 114/52
--- NOTE | 2019-08-29 17:46 | NUR ---
PATIENT IS SEEN BY ORTHOPEDIC ON 08/28/2019, WITH ORDER PATIENT IS WBAT TO LLE,, POSTERIOR DISLOCATION PRECAUTIONS FOR 4 WEEKS, PATIENT TEACHING PROVIDED, PATIENT VERBALIZED THE UNDERSTANDING OF PRECAUTIONS, HAND OUTS GIVEN TO PATIENT. CASE MANGER IS AWARE ABOUT FOLLOW UP APT, PT AT HOME, ASA INCREASED ORDERED, PATIENT TEACHING PROVIDED TO TAKE ASA ORDERED, FOR 3 MORE WEEKS, PATIENT VERBALIZED UNDERSTANDING OF IT, WILL REINFORCE TOMORROW WITH DISCHARGE INSTRUCTIONS.
[2019-08-29] MEDS: SERTRALINE HCL 50 MG TABLET PO SCH (20:16)
[2019-08-29] MEDS: ATORVASTATIN 40 MG TABLET PO SCH (20:16)
[2019-08-29] MEDS: INSULIN REGULAR, HUMAN 300 UNIT/3 ML VIAL SQ PRN (20:19)
--- NOTE | 2019-08-29 20:51 | NUR ---
Patient received in bed resting, no signs of distress, no signs of SOB, patient denies any pain. No complaints at the time. Patient vitals stable, temperature 98.2 and blood pressure 124/51. Accucheck BS: 143 gave 2 units of insulin. Patient received all her medication and took them as tolerable. All safety measures in place, bed locked and in low position, side rails up x2, and call light within patient reach. All needs are met and attended to.
[2019-08-29 21:25] VITALS: BP 124/51
[2019-08-30] MEDS: ACETAMINOPHEN 325 MG TABLET PO PRN (02:10)
[2019-08-30 04:34] VITALS: BP 133/39
[2019-08-30] MEDS: PANTOPRAZOLE SODIUM 40 MG TABLET.DR PO SCH (06:17)
[2019-08-30] MEDS: BLOOD SUGAR DIAGNOSTIC 1 EACH STRIP VI SCH ×2 (06:32→11:56)
--- NOTE | 2019-08-30 06:41 | NUR ---
Patient slept through the night. No acute distress. Vitals are stable Assisted patient to the bathroom with the walker 5 times. Patient took her medication as tolerable. Accucheck BS: 116, no coverage needed. Fall precautions in place, low position, locked, x2 rails, bed alarm on, and patient call light within reach. Continue plan of care will endorse the report to the next shift.
[2019-08-30] MEDS: DOCUSATE SODIUM 100 MG CAPSULE PO SCH (08:19)
[2019-08-30] MEDS: METFORMIN HCL 500 MG TABLET PO SCH (08:19)
[2019-08-30] MEDS: GABAPENTIN 100 MG CAPSULE PO SCH (08:20)
[2019-08-30] MEDS: CHOLECALCIFEROL 1,000 UNIT TABLET PO SCH (08:20)
[2019-08-30] MEDS: EZETIMIBE 10 MG TABLET PO SCH (08:20)
[2019-08-30] MEDS: MULTIVIT, IRON, MIN NO. 8, FA TABLET PO SCH (08:20)
[2019-08-30] MEDS: CALCIUM CARB/VITAMIN D 600-400 MG TABLET PO SCH (08:21)
[2019-08-30] MEDS: METOPROLOL TARTRATE 25 MG TABLET PO SCH (08:26)
[2019-08-30 08:29] VITALS: BP 110/50
[2019-08-30] MEDS ORDERED: ASPIRIN 81 MG TAB.CHEW PO SCH (09:00)
--- NOTE | 2019-08-30 14:18 | NUR ---
DISCHARGED PATIENT HOME WITH AND SISTER IN LAW IN PRIVATE CAR. PATIENT IS ALERT, ORIENTED X4, NO SOB, RESP EVEN NONLABORED,SKIN WARM AND DRY TO TOUCH, NO SKIN ISSUES, INCISION TO LEFT HIP IS CLEAN AND DRY, STERI STRIPS ARE INTACT, NO SIGNS AND AND SYMPTOMS OF INFECTION NOTED AT INCISION SITE, IV REMOVED, ID BAND REMOVED, BELONGINGS ARE ACCOUNTED AND SINGED, DISCHARGE INSTRUCTIONS ARE GIVEN TO PATIENT, FOLLOW UP APT, MEDS PRESCRIBED, HIP PRECAUTIONS REVIEWED WITH PATIENT, WRITTEN MATERIAL GIVEN TO PATIENT, SIGNS AND SYMPTOMS OF HYPOGLYCEMIA/ HYPERGLYCEMIA PATIENT VERBALIZED UNDERSTANDING OF IT. TRANSFERRED SAFELY TO THE CAR.
== END 2019-08-30 13:00 | disposition home health service (06) | DRG 560 ==
PROVIDERS: ADMIT Physical Medicine & Rehabilitation Pain Medicine; ATTEND Physical Medicine & Rehabilitation Pain Medicine
DX: S72.002D Fracture of unspecified part of neck of left femur, subsequent encounter for closed fracture with routine healing (principal); D62 Acute posthemorrhagic anemia; N17.9 Acute kidney failure, unspecified; W19.XXXD Unspecified fall, subsequent encounter; E11.51 Type 2 diabetes mellitus with diabetic peripheral angiopathy without gangrene; E78.5 Hyperlipidemia, unspecified; I10 Essential (primary) hypertension; I25.10 Atherosclerotic heart disease of native coronary artery without angina pectoris; W18.30XD Fall on same level, unspecified, subsequent encounter; I12.9 Hypertensive chronic kidney disease with stage 1 through stage 4 chronic kidney disease, or unspecified chronic kidney disease; N18.2 Chronic kidney disease, stage 2 (mild); E11.22 Type 2 diabetes mellitus with diabetic chronic kidney disease; E86.9 Volume depletion, unspecified; I65.29 Occlusion and stenosis of unspecified carotid artery; I95.1 Orthostatic hypotension; R26.9 Unspecified abnormalities of gait and mobility; Z88.8 Allergy status to other drugs, medicaments and biological substances; Z96.642 Presence of left artificial hip joint
CPT/HCPCS: 36415; 70030-TC; 73502; 83550; 83735; 84100; 85018; 85025; A4663; J0885; J1650; J1815; J2916; J3490; J7030